=== PATIENT | male | born 1995 | race Caucasian/White ===

== ENCOUNTER 2020-10-21 20:50 | Emergency (ER) | payer BC, OTHER ==
[~2020-10-21] VITALS: Ht 152.4 cm; Wt 158.8 kg
[~2020-10-21 20:50] MED LIST: AMPHETAMINE; DEXTROAMPHETAMINE; Z.0.TYLENOL # 31 EA
[2020-10-21] MEDS ORDERED: AMLODIPINE BESYL5 MG PO (21:06)
== END 2020-10-21 21:20 | disposition home or self-care (01) ==
LOC: ER 21:08
DX: I10 Essential (primary) hypertension (principal); K21.9 Gastro-esophageal reflux disease without esophagitis; F90.9 Attention-deficit hyperactivity disorder, unspecified type
CPT/HCPCS: 93005; 99282